=== PATIENT | male | born 1980 ===

== ENCOUNTER 2024-05-11 14:32 | Emergency (ER) | payer SELFPAY ==
[2024-05-11 15:34] LABS: BASOPHILS ABSOLUTE AUTO 0.05 K/uL (0.02-0.10); BASOPHILS PERCENT AUTO 0.7 % (0.0-0.5); EOSINOPHILS ABSOLUTE AUTO 0.05 K/uL (0.04-0.40); EOSINOPHILS PERCENT AUTO 0.7 % (1.0-5.0); HEMATOCRIT 40.9 % (40.0-54.0); LYMPHOCYTES ABSOLUTE AUTO 0.47 K/uL (1.50-4.00); LYMPHOCYTES PERCENT AUTO 6.1 % (20.0-40.0); MEAN CORPUSCULAR HEMOGLOBIN 35.2 pg (27.0-32.0); MEAN CORPUSCULAR HGB CONC 36.7 g/dL (31.0-35.0); MEAN CORPUSCULAR VOLUME 96 fL (76-96); MEAN PLATELET VOLUME 9.6 fL (6.0-10.0); MONOCYTES ABSOLUTE AUTO 0.64 K/uL (0.20-0.80); MONOCYTES PERCENT AUTO 8.3 % (3.0-10.0); NEUTROPHILS ABSOLUTE AUTO 6.48 K/uL (2.00-7.50); NEUTROPHILS PERCENT AUTO 84.2 % (45.0-70.0); PLATELET COUNT,PLT 156 K/uL (150-400); RED BLOOD CELL COUNT 4.26 M/uL (4.50-6.50); RED CELL DISTRIBUTION WIDTH 12.1 % (11.0-16.0); WHITE BLOOD CELL COUNT,WBC 7.7 K/uL (4.0-11.0)
[2024-05-11 15:51] LABS: A/G RATIO 1.1 (0.8-2.0); ANION GAP 17.7 mmol/L (5.0-15.0); BILIRUBIN TOTAL 1.8 mg/dL (0.0-1.0); BUN/CREATININE RATIO 4.8 (6-25); CALCIUM 9.4 mg/dL (8.5-10.1); CARBON DIOXIDE,CO2 25.9 mmol/L (21.0-32.0); CREATININE 0.84 mg/dL (0.70-1.30); EST CRCL DRUG DOSING (CG) 115.87 mL/min; MAGNESIUM 1.3 mg/dL (1.8-2.4); POTASSIUM,K 3.6 mmol/L (3.5-5.1); PROTEIN TOTAL,TP 7.7 g/dL (6.4-8.2)
[2024-05-11] MEDS: Sodium Chloride 0.9% 1,000 ML IV ONE (16:08)
[2024-05-11] MEDS: Magnesium Sulfate/Water 2 GM in Premix Bag 1 BAG IV ONE (16:11)
[2024-05-11] MEDS: Magnesium Sulfate/Water 50 ML ONE (16:21)
== END 2024-05-11 17:17 | disposition home or self-care (01) ==
LOC: LB.ED 14:32
DX: R56.9 Unspecified convulsions (principal); F17.210 Nicotine dependence, cigarettes, uncomplicated
CPT/HCPCS: 36415; 70450; 80053; 82550; 82947; 83605; 83735; 85025; 96365; 99284; 99285-25; J3475; J7030